=== PATIENT | male | born 1955 | race Caucasian/White ===

== ENCOUNTER 2021-01-27 18:29 | Inpatient (IN) | payer MEDICARE, OTHER ==
[~2021-01-27] VITALS: Ht 182.9 cm; Wt 104.4 kg
--- NOTE | 2021-01-27 18:30 | NUR ---
RECEVED PT 65 YRS OLD MALE came from [facility] awake alert and orinted x 4 pt here for evaluation of poor intak abdomin soft none tender to touch
[2021-01-27] MEDS ORDERED: AMLO10TA59 PO (19:00)
[2021-01-27] MEDS ORDERED: VITAMIN D3 PO (19:00)
[2021-01-27] MEDS ORDERED: ZINC SULFATE PO (19:00)
[2021-01-27] MEDS ORDERED: MELA5TAB PO (19:00)
[2021-01-27] MEDS ORDERED: FLUO20CA36 PO (19:00)
[2021-01-27] MEDS ORDERED: MAG-55 PO (19:00)
[2021-01-27] MEDS ORDERED: CLOZ100T32 PO ×2 (19:00)
[2021-01-27] MEDS ORDERED: ASCO500P18 PO (19:00)
[2021-01-27] MEDS ORDERED: MAGNESIUM HYDROXIDE PO (19:01)
[2021-01-27] MEDS ORDERED: ACET-2154 PO (19:01)
[2021-01-27] MEDS ORDERED: DOCU100C36 PO (19:01)
--- NOTE | 2021-01-27 19:05 | NUR ---
HAND OFF TO MANUEL FIGUEROA RN SHIFT [id number]
[2021-01-27] MEDS ORDERED: [UNRECOGNIZED DRUG - MIXTURE] (19:09)
[2021-01-27] MEDS ORDERED: LISI10TA29 PO (19:09)
[2021-01-27] MEDS ORDERED: BUSP5TAB3 PO (19:09)
[2021-01-27] MEDS ORDERED: VITA-287 PO (19:09)
[2021-01-27] MEDS ORDERED: MIRT15TA7 PO (19:09)
[2021-01-27] MEDS ORDERED: ZIPRASIDONE MESYLATE 20 MG VIAL IM ONE (19:30)
[2021-01-27 20:01] LABS: *BILIRUBIN,URIN NEGATIVE (NEGATIVE); *BLOOD, URINE 2+ (NEGATIVE); *CLARITY,URINE CLEAR (CLEAR); *COLOR,URINE YELLOW (YELLOW); *KETONES,URINE NEGATIVE (NEGATIVE); *UROBILINOGEN,URINE 0.2 E.U./dl (NORMAL); LEUKOCYTE ESTERASE ,URINE NEGATIVE (NEGATIVE); NITRITE, URINE NEGATIVE (NEGATIVE); PH,URINE 6.5 (5.0-8.0); UGLUCOSE NEGATIVE (NEGATIVE)
[2021-01-27 20:02] LABS: *AMPHETAMINE, URINE NEGATIVE (NEGATIVE); *CANNABINOID, URINE NEGATIVE (NEGATIVE); *COCCAINE, URINE NEGATIVE (NEGATIVE); *OPIATE, URINE NEGATIVE (NEGATIVE); *PHENCYCLIDINE SCREEN,URINE NEGATIVE (NEGATIVE)
[2021-01-27] MEDS ORDERED: MAGNESIUM SULFATE/D5W 200 ML ONE (20:12)
[2021-01-27 20:17] LABS: BASOPHILS # (AUTO) 0.1 K/uL (0.0-8.0); BASOPHILS % (AUTO) 1.3 % (0.0-2.0); EOSINOPHILS % (AUTO) 0.2 % (0.0-7.0); HEMATOCRIT 43.6 % (36.7-47.1); HEMOGLOBIN 14.2 g/dL (12.5-16.3); LYMPHOCYTES # (AUTO) 2.2 K/uL (20.0-40.0); LYMPHOCYTES % (AUTO) 25.4 % (20.5-51.5); MEAN CORPUSCULAR HEMOGLOBIN 26.8 uug (23.8-33.4); MEAN CORPUSCULAR HGB CONC 33 g/dL (32.5-36.3); MEAN CORPUSCULAR VOLUME 82.3 fL (73.0-96.2); MONOCYTES # (AUTO) 0.7 K/uL (2.0-10.0); MONOCYTES % (AUTO) 7.8 % (0.0-11.0); NEUTROPHILS # (AUTO) 5.7 K/uL (1.8-8.9); NEUTROPHILS % (AUTO) 65.3 % (38.5-71.5); PLATELET COUNT (AUTO) 215 K/uL (152-348); WHITE BLOOD COUNT (AUTO) 8.6 K/uL (3.6-10.2)
[2021-01-27 20:22] LABS: CARBON DIOXIDE 33 mmol/L (21-32); CHLORIDE 103 mmol/L (98-107); CREATININE 1.2 mg/dL (0.6-1.3); GLUCOSE 110 mg/dL (74-106); POTASSIUM 3.7 mmol/L (3.5-5.1); UREA NITROGEN, BLOOD 20 mg/dL (7-18)
[2021-01-27 20:29] LABS: ALANINE AMINOTRANSFERASE 23 U/L (16-63); ALKALINE PHOSPHATASE 68 U/L (50-136); ASPARTATE AMINOTRANSFERASE 12 U/L (15-37); BILIRUBIN,DIRECT 0.1 mg/dL (0.0-0.2); BILIRUBIN,TOTAL 0.3 mg/dL (0.2-1.0); CREATINE KINASE, TOTAL 62 U/L (39-308)
[2021-01-27 20:30] LABS: ACETAMINOPHEN < 2.0 ug/mL (10-30)
[2021-01-27 20:36] LABS: THYROID STIMULATING HORMONE 3.543 mIU/mL (0.358-3.740)
[2021-01-27 20:45] LABS: ETHANOL < 3 MG/DL (0-0)
[2021-01-27] MEDS: MAGNESIUM SULFATE/D5W 100 ML IV SCH ×2 (21:01→21:17)
[2021-01-27] MEDS ORDERED: ACETAMINOPHEN 325 MG TABLET PO PRN ×2 (21:45)
[2021-01-27] MEDS ORDERED: HYDROCODONE/APAP 5-325MG TABLET PO PRN (21:45)
[2021-01-27] MEDS ORDERED: Z GUARD REMEDY PASTE 57 GM TUBE TOP PRN (21:45)
[2021-01-27] MEDS ORDERED: MAGNESIUM HYDROXIDE 30 ML LIQUID UDC PO PRN (21:45)
[2021-01-27] MEDS ORDERED: IV NS 1000 ML 1,000 ML IV PRN (21:45)
[2021-01-27] MEDS ORDERED: ONDANSETRON 4 MG/2 ML VIAL IV PRN (21:45)
[2021-01-27 22:55] LABS: WBC,URINE 0-3 /HPF (0-3)
[2021-01-27 22:56] LABS: BACTERIA,URINE NONE SEEN /HPF (NONE SEEN); SQUAMOUS EPITHELIAL CELL,UR FEW /HPF (NONE SEEN); URINE AMORPHOUS URATE FEW /HPF
--- NOTE | 2021-01-28 00:26 | NUR ---
Patient arrived in the floor via WC. Awake, alert and oriented x 2-3, a little bit confused and disoriented to place and situation, re-orientation was done. Ambulatory with slow but steady gait. Re-orientation to room, call lights and TV remote. Instructed patient to call for assistance when needed. Denied any pain/discomforts at this time. Routine admission care done. Plan of care initiated. VS stable.
[2021-01-28] MEDS ORDERED: MAG HYDROX/AL HYDROX/SIMETH 30 ML LIQUID UDC PO SCH (00:45)
[2021-01-28 00:49] VITALS: BP 147/82
[2021-01-28 04:22] VITALS: BP 141/84
--- NOTE | 2021-01-28 05:57 | NUR ---
Shift End Report: Slept well. Awakened at 0500, ambulating several times in the hallway claiming he's having difficulty breathing. O2 sat 96% RA. Requested cold towel to cleanse up himself. Deep breathing exercises encouraged and relaxation technique. Able to return demonstration. Continue care as planned.
[2021-01-28 07:01] LABS: BASOPHILS # (AUTO) 0.1 K/uL (0.0-8.0); BASOPHILS % (AUTO) 0.9 % (0.0-2.0); EOSINOPHILS % (AUTO) 0.1 % (0.0-7.0); HEMATOCRIT 45.5 % (36.7-47.1); HEMOGLOBIN 15.3 g/dL (12.5-16.3); LYMPHOCYTES # (AUTO) 3.1 K/uL (20.0-40.0); LYMPHOCYTES % (AUTO) 31.4 % (20.5-51.5); MEAN CORPUSCULAR HEMOGLOBIN 27.9 uug (23.8-33.4); MEAN CORPUSCULAR HGB CONC 34 g/dL (32.5-36.3); MEAN CORPUSCULAR VOLUME 83.1 fL (73.0-96.2); MONOCYTES # (AUTO) 0.8 K/uL (2.0-10.0); MONOCYTES % (AUTO) 7.7 % (0.0-11.0); NEUTROPHILS # (AUTO) 5.9 K/uL (1.8-8.9); NEUTROPHILS % (AUTO) 59.9 % (38.5-71.5); PLATELET COUNT (AUTO) 247 K/uL (152-348); RED BLOOD CELL COUNT(AUTO) 5.48 MIL/uL (4.06-5.63); WHITE BLOOD COUNT (AUTO) 9.8 K/uL (3.6-10.2)
[2021-01-28 07:13] LABS: CREATININE 1.2 mg/dL (0.6-1.3); MAGNESIUM 2.7 mg/dL (1.8-2.4); PHOSPHOROUS 3.4 mg/dL (2.5-4.9); POTASSIUM 3.7 mmol/L (3.5-5.1)
[2021-01-28] MEDS ORDERED: MAG HYDROX/AL HYDROX/SIMETH 30 ML LIQUID UDC PO PRN (07:15)
[2021-01-28 08:00] VITALS: BP 157/89
[2021-01-28] MEDS: FLUOXETINE HCL 20 MG CAPSULE PO SCH (08:59)
[2021-01-28] MEDS: AMLODIPINE 10 MG TABLET PO SCH (08:59)
[2021-01-28] MEDS: DOCUSATE SODIUM 100 MG CAPSULE PO SCH ×2 (08:59→17:10)
[2021-01-28] MEDS: busPIRone 5 MG TABLET PO SCH ×2 (08:59→17:10)
[2021-01-28] MEDS: ASCORBIC ACID 500 MG TABLET PO SCH ×2 (09:00→17:10)
[2021-01-28] MEDS: LISINOPRIL 10 MG TABLET PO SCH (09:00)
[2021-01-28] MEDS: VITAMIN B COMPLEX 1 TABLET PO SCH (09:02)
[2021-01-28] MEDS: CLOZAPINE 100 MG TABLET PO SCH ×2 (09:45→20:12)
[2021-01-28 16:00] VITALS: BP 129/71
[2021-01-28] MEDS: MIRTAZAPINE 15 MG TABLET PO SCH (17:12)
[2021-01-28] MEDS: MELATONIN 3 MG TABLET PO SCH (20:12)
[2021-01-28 20:33] VITALS: BP 125/76
[2021-01-29 04:00] VITALS: BP 128/68
--- NOTE | 2021-01-29 04:52 | NUR ---
PATIENT IS IN BED, ASLEEP AT THIS TIME. IN NO ACUTE OR RESPIRATORY DISTRESS. PATIENT SLEPT WELL DURING THE NIGHT. NO CHANGES OF CONDITION OBSERVED. WILL CONTINUE TO MONITOR PATIENT.
[2021-01-29 05:44] LABS: CREATININE 1.1 mg/dL (0.6-1.3); MAGNESIUM 2.3 mg/dL (1.8-2.4); PHOSPHOROUS 3.5 mg/dL (2.5-4.9); POTASSIUM 3.7 mmol/L (3.5-5.1)
[2021-01-29] MEDS: DOCUSATE SODIUM 100 MG CAPSULE PO SCH ×2 (08:05→16:36)
[2021-01-29] MEDS: AMLODIPINE 10 MG TABLET PO SCH (08:05)
[2021-01-29] MEDS: busPIRone 5 MG TABLET PO SCH ×2 (08:05→16:36)
[2021-01-29] MEDS: LISINOPRIL 10 MG TABLET PO SCH (08:06)
[2021-01-29] MEDS: ASCORBIC ACID 500 MG TABLET PO SCH ×2 (08:06→16:37)
[2021-01-29] MEDS: FLUOXETINE HCL 20 MG CAPSULE PO SCH (08:06)
[2021-01-29] MEDS: VITAMIN B COMPLEX 1 TABLET PO SCH (08:07)
[2021-01-29] MEDS: CLOZAPINE 100 MG TABLET PO SCH ×2 (08:07→20:16)
[2021-01-29 08:11] VITALS: BP 142/87
[2021-01-29 11:09] VITALS: BP 135/74
[2021-01-29 14:54] VITALS: BP 154/79
[2021-01-29] MEDS: MIRTAZAPINE 15 MG TABLET PO SCH (17:22)
--- NOTE | 2021-01-29 18:56 | NUR ---
patient is ambulatory independently, walks in the hallway, sometimes needs redirections, however compliant with meds and medical care, no episodes of agitation noted, no acute distress noted
[2021-01-29] MEDS: MELATONIN 3 MG TABLET PO SCH (20:12)
[2021-01-29 20:20] VITALS: BP 132/78
[2021-01-30 04:00] VITALS: BP 135/81
[2021-01-30] MEDS: busPIRone 5 MG TABLET PO SCH (09:10)
[2021-01-30] MEDS: FLUOXETINE HCL 20 MG CAPSULE PO SCH (09:11)
[2021-01-30] MEDS: AMLODIPINE 10 MG TABLET PO SCH (09:11)
[2021-01-30] MEDS: LISINOPRIL 10 MG TABLET PO SCH (09:11)
[2021-01-30] MEDS: ASCORBIC ACID 500 MG TABLET PO SCH (09:11)
[2021-01-30] MEDS: DOCUSATE SODIUM 100 MG CAPSULE PO SCH (09:11)
[2021-01-30] MEDS: VITAMIN B COMPLEX 1 TABLET PO SCH (09:13)
[2021-01-30] MEDS: CLOZAPINE 100 MG TABLET PO SCH (09:14)
[2021-01-30 11:31] VITALS: BP 119/69
[2021-01-31 04:23] LABS: ALBUMIN 3.1; ALPHA-1-GLOBULIN 0.2; ALPHA-2-GLOBULIN 0.6; BETA GLOBULIN 0.8; GAMMA GLOBULIN 0.9
[2021-01-31 04:24] LABS: A/G RATIO 1.2; GLOBULIN, TOTAL 2.6; M-SPIKE NOT OBSERVED
== END 2021-01-30 13:30 | DRG 682 ==
LOC: ER 18:31 → MEDSURG3 21:30
PROVIDERS: ADMIT Internal Medicine; ATTEND Internal Medicine
DX: N17.0 Acute kidney failure with tubular necrosis (principal); G93.41 Metabolic encephalopathy; Z20.822 Contact with and (suspected) exposure to COVID-19; I10 Essential (primary) hypertension; F29 Unspecified psychosis not due to a substance or known physiological condition; R53.1 Weakness; F03.90 Unspecified dementia, unspecified severity, without behavioral disturbance, psychotic disturbance, mood disturbance, and anxiety; R63.4 Abnormal weight loss; Z68.31 Body mass index [BMI] 31.0-31.9, adult; E86.0 Dehydration
CPT/HCPCS: 36415; 71045; 83735; 83970; 84100; 84155; 84165; 84443; 85025; 93005; A4663; G0378; G0480; J3475; J7030